=== PATIENT | male | born 1970 | race Caucasian/White ===

== ENCOUNTER 2016-09-21 11:13 | Emergency (ER) | payer SELFPAY ==
--- NOTE | 2016-09-21 11:18 | EDM.PDOC ---
ED HPI GENERAL MEDICAL PROBLEM - General Chief Complaint: Upper Extremity Injury/Pain Stated Complaint: CUT TO RT ARM, ? INFECTED Time Seen by Provider: 09/21/16 11:18 Source of Information: Reports: Patient, RN, RN Notes Reviewed History Limitations: Reports: No Limitations - History of Present Illness INITIAL COMMENTS - FREE TEXT/NARRATIVE: Pt concerned that a laceration on his left arm is becoming infected. Reports sustaining a 2" laceration to the left lateral elbow on a piece of sharp plastic 10 days ago which was healing well. Then approx. 3 or 4 days ago he scraped the arm on a camper door and tore the laceration open. Last night he noticed the onset of increased pain with mild swelling and a slight redness around the wound. Denies fever, chills, or purulent drainage. Duration: Day(s): (10) Location: Reports: Upper Extremity, Left Quality: Reports: Ache Severity: Moderate Improves with: Reports: None Worsens with: Reports: None Associated Symptoms: Reports: No Other Symptoms Left Arm Pain Score (Numeric/FACES): 5 - Related Data Allergies Allergy/AdvReac Type Severity Reaction Status Date / Time No Known Allergies Allergy Verified 09/21/16 11:25 Home Meds: Home Meds . [No Known Home Meds] 09/21/16 [History] Past Medical History - Past Health History Medical/Surgical History: Denies Medical/Surgical History Social & Family History - Family History Family Medical History: Noncontributory - Living Situation & Occupation Living situation: Reports: , with Family Occupation: Employed ED ROS GENERAL - Review of Systems Review Of Systems: ROS reveals no pertinent complaints other than HPI. ED EXAM, SKIN/RASH Exam: See Below Exam Limited By: No Limitations General Appearance: Alert, WD/WN, No Apparent Distress Head: Atraumatic, Normocephalic Respiratory/Chest: No Respiratory Distress Peripheral Pulses: 3+: Radial (L), Radial (R) Extremities: Other (subacute 2.5cm linear laceration healing by secondary intention with granulation tissue and eschar, no purulent drainage, mild 3cm to 4cm periperal erythema with very slight swelling and some tenderness, no axillary lymphadenopathy.) Neurological: Alert, Oriented, Normal Cognition, Normal Gait, No Motor/Sensory Deficits Psychiatric: Normal Mood Course - Vital Signs Last Recorded V/S: Last Vital Signs Temp 36.8 C 09/21/16 11:26 Pulse 84 09/21/16 11:26 Resp 16 09/21/16 11:26 BP 136/101 H 09/21/16 11:26 Pulse Ox 99 09/21/16 11:26 Departure - Departure Time of Disposition: 11:39 Disposition: Home, Self-Care 01 Condition: Good Clinical Impression: Infected laceration - Discharge Information Instructions: Wound Infection, [id number] Forms: ED Department Discharge Additional Instructions: Rx: Cephalexin 500mg Rx: Bactroban Ointment 2% Follow up in clinic if not improving in 2 to 3 days. Return to ER if worse at any time.
== END 2016-09-21 11:47 | disposition home or self-care (01) ==
LOC: DL.ED 11:13
CPT/HCPCS: 99282